=== PATIENT | male | born 1980 | race African-American/Black ===

== ENCOUNTER 2019-09-24 21:18 | Emergency (ER) | payer MEDICAID ==
[~2019-09-24] VITALS: Ht 185.4 cm; Wt 122.7 kg
[2019-09-24 22:37] LABS: APPEARANCE,URINE CLEAR (CLEAR); BILIRUBIN,URINE NEGATIVE (NEGATIVE); GLUCOSE, URINE (UA) NEGATIVE (NEGATIVE); KETONES,URINE NEGATIVE (NEGATIVE); LEUKOCYTE ESTERASE ,URINE NEGATIVE (NEGATIVE); NITRATE,URINE NEGATIVE (NEGATIVE); OCCULT BLOOD,URINE NEGATIVE (NEGATIVE); PROTEIN,URINE NEGATIVE (NEGATIVE)
[2019-09-24] MEDS ORDERED: CefTRIAXone SODIUM 1 GM/VIAL IM ONE (23:45)
[2019-09-24] MEDS ORDERED: AZITHROMYCIN 250 MG TABLET PO ONE (23:45)
[2019-09-25 00:03] VITALS: BP 143/81
== END 2019-09-25 00:14 | disposition home or self-care (01) ==
LOC: EMS 21:18
DX: R36.9 Urethral discharge, unspecified (principal); F17.210 Nicotine dependence, cigarettes, uncomplicated
CPT/HCPCS: 81003; 87491; 87591; 96372; 99283; J0696